=== PATIENT | male | born 1965 | race African-American/Black ===

== ENCOUNTER 2016-09-28 10:51 | Inpatient (IN) | payer OTHER ==
[2016-09-28 11:42] VITALS: BMI 26.4
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
[2016-09-28] MEDS ORDERED: ALBUTEROL SO4 6.7 GM HFA INHALER IH PRN (12:28)
[2016-09-28] MEDS ORDERED: ACETAMINOPHEN 325 MG TABLET (FP) PO PRN (14:00)
[2016-09-28] MEDS ORDERED: MENTHOL/PHENOL 1 EACH UD MM PRN (14:00)
[2016-09-28] MEDS ORDERED: IBUPROFEN 400 MG TABLET (FP) PO PRN (14:00)
[2016-09-28] MEDS ORDERED: diphenhydrAMINE HCL 50 MG CAPSULE PO PRN (14:00)
[2016-09-28] MEDS ORDERED: MAGNESIUM HYDROX 2400MG/30ML ORAL SUSPENSION 30 ML CUP PO PRN (14:00)
[2016-09-28] MEDS ORDERED: LOPERAMIDE HCL 2 MG CAPSULE PO PRN (14:00)
[2016-09-28] MEDS ORDERED: guaiFENesin/D-METHORPHAN HB 10 ML UNIT-DOSE CUPS PO PRN (14:00)
[2016-09-28] MEDS ORDERED: MAG HYDROX/AL HYDROX/SIMETH 30 ML UNIT-DOSE CUP PO PRN (14:00)
[2016-09-28] MEDS ORDERED: MAGNESIUM CITRATE 300 ML BOTTLE PO PRN (14:00)
[2016-09-28] MEDS ORDERED: P-EPHED 60MG/TRIPROLIDI 2.5MG TABLET PO PRN (14:00)
[2016-09-28] MEDS ORDERED: hydrOXYzine PAMOATE 50 MG CAPSULE (FP) PO PRN (14:00)
[2016-09-28] MEDS ORDERED: chlordiazePOXIDE HCL 25 MG CAPSULE PO PRN (14:00)
[2016-09-28] MEDS ORDERED: chlordiazePOXIDE HCL 25 MG CAPSULE PO ONE (14:12)
[2016-09-28] MEDS ORDERED: METHADONE HCL 10 MG TABLET (FOR DETOX USE ONLY) PO ONE ×2 (14:13→23:00)
[2016-09-28 14:24] LABS: HIV 1 & 2 AB NEGATIVE; HIV 1 AGp24 NEGATIVE
[2016-09-28] MEDS: NICOTINE 21 MG/24 HOURS TOPICAL PATCH TD SCH (14:28)
--- NOTE | 2016-09-28 16:05 | CONSULT ---
[facility] Psychiatric Consult - Data Date of interview: 09/28/16 Admission source: [facility] Identifying data: Readmission to [facility] for this 51 y/o Aa male seeking detox treatment on for alcohol,heroin and marijuana dependence.Patient is single,without children,homeless,unemployed and supported on food stamps. Substance Abuse History: Smoking Cessation. Smoking history: Current every day smoker. Have you smoked in the past 12 months: Yes. Aproximately how many cigarettes per day: 8. Cigars Per Day: 0. Hx Chewing Tobacco Use: No. Initiated information on smoking cessation: Yes. 'Breaking Loose' booklet given : 09/28/16. - Substance & Tx. History. Hx Alcohol Use: Yes. Hx Substance Use : Yes. Substance Use Type: Alcohol, Heroin, Marijuana. Hx Substance Use Treatment: [facility] to 06[facility]14/15 not completed). - Substances Abused. Heroin. Route: Inhalation. Frequency: Daily. Amount used: 2 BAGS. Age of first use: 45. Date of Last Use: 09/28/16. Alcohol. Route: Oral. Frequency: Daily. Amount used: FIFTH VODKA OR COGNAC. Age of first use: 28. Date of Last Use: 09/28/16. Cocaine. Route: Inhalation. Frequency: 1-2 times per week. Amount used: $25. Age of first use: 42. Date of Last Use: 07/04. Marijuana/Hashish. Route: Smoking. Frequency: Daily. Amount used: $5. Age of first use: 19. Date of Last Use: 09/27/16. Confirmed by patient. Medical History: Bronchial asthma and a history of past treatment for syphilis. Psychiatric History: No reported history of psychiatric hospitalizations.Mr Chery indicates that he was treated with risperdal during his [facility] in [facility] (released in 2013) .Diagnosed with MDD and Anxiety Disorder (?).Iff psycchotropic medication ( risperdal) for more than a year.No OPD care since his release in 2013.No history of suicide attempts. Physical/Sexual Abuse/Trauma History: Patient denies. Additional Comment: Urine Drug Screen Results: THC-Marijuana, EN-Cocaine, OPI- Opiates.Noted. Mental Status Exam - Mental Status Exam Alert and Oriented to: Time, Place, Person Cognitive Function: Good Patient Appearance: Well Groomed Mood: Hopeful, Euthymic Affect: Appropriate, Normal Range Patient Behavior: Fatigued, Appropriate, Cooperative Speech Pattern: Clear Voice Loudness: Normal Thought Process: Goal Oriented Thought Disorder: Not Present Hallucinations: Denies Suicidal Ideation: Denies Homicidal Ideation: Denies Insight/Judgement: Poor Sleep: Poorly, Difficulty falling asleep (requests zolpidem) Appetite: Good Muscle strength/Tone: Normal Gait/Station: Normal Psychiatric Findings - Problem List ([place] 1, 2,3) (1) Alcohol dependence with uncomplicated withdrawal Current Visit: Yes Status: Acute (2) Cannabis dependence Current Visit: Yes Status: Acute (3) Opioid dependence with withdrawal Current Visit: Yes Status: Acute (4) Nicotine dependence Current Visit: Yes Status: Acute (5) Substance induced mood disorder Current Visit: Yes Status: Acute (6) Asthma Current Visit: Yes Status: Chronic - Initial Treatment Plan Initial Treatment Plan: Psychoeducation.Detoxification.Zolpidem 5 mg po hs prn.Side effects/benefits discussed with patient.Patient agrees with plan.Observation.
[2016-09-28] MEDS ORDERED: ZOLPIDEM TARTRATE 5 MG TABLET PO PRN (17:05)
[2016-09-28] MEDS: chlordiazePOXIDE HCL 25 MG CAPSULE PO SCH ×2 (17:35→22:37)
[2016-09-28] MEDS ORDERED: THIAMINE HCL 100 MG TABLET (FP) PO SCH (22:00)
[2016-09-28] MEDS: BUDESONIDE/FORMETEROL FUMARATE 80/4.5 mcg INHALER IH SCH (22:39)
--- NOTE | 2016-09-28 23:59 | EKG ---
Test Reason : Blood Pressure : / mmHG Vent. Rate : 063 BPM Atrial Rate : 063 BPM P-R Int : 174 ms QRS Dur : 094 ms QT Int : 466 ms P-R-T Axes : 071 068 067 degrees QTc Int : 476 ms NORMAL SINUS RHYTHM NORMAL ECG NO PREVIOUS ECGS AVAILABLE Confirmed by CHELSEA ALMONTE, JOSE LUIS ([id number]) on 09/28/2016 11:59:22 PM Referred By: Theodore Mosquera Confirmed By:JOSE LUIS TRAN MD
[2016-09-29] MEDS: chlordiazePOXIDE HCL 25 MG CAPSULE PO SCH ×2 (06:12→10:23)
[2016-09-29] MEDS ORDERED: COLLOIDAL OATMEAL 1 BAR EACH TP PRN (08:47)
[2016-09-29] MEDS ORDERED: METHADONE HCL 10 MG TABLET (FOR DETOX USE ONLY) PO SCH (10:00)
[2016-09-29] MEDS ORDERED: COLLOIDAL OATMEAL 1 BAR EACH TP SCH (10:00)
[2016-09-29] MEDS ORDERED: PRENATAL VITAMINS W/ FOLIC ACID TABLET (FP) PO SCH (10:00)
[2016-09-29 10:20] LABS: MCH 31.6 pg (25.7-33.7); MCHC 35.1 g/dl (32.0-35.9); MEAN CELL VOLUME 90.1 fl (80-96); MEAN PLT VOLUME 9.1 fl (7.5-11.1); PLATELET COUNT 248 K/MM3 (134-434); RDW 14.5 % (11.9-15.9); WHITE BLOOD COUNT 9.4 K/mm3 (4.0-10.0)
[2016-09-29] MEDS: NICOTINE 21 MG/24 HOURS TOPICAL PATCH TD SCH (10:24)
[2016-09-29] MEDS: BUDESONIDE/FORMETEROL FUMARATE 80/4.5 mcg INHALER IH SCH (10:24)
[2016-09-29 10:31] VITALS: BP 106/50; PULSE 70; TEMP 96.2
--- NOTE | 2016-09-29 10:44 | DS ---
[facility] Detox Discharge Summary Admission Date: 09/28/16 Discharge Date: 09/29/16 - History Present History: Alcohol Dependence, Cannabis Dependence, Cocaine Dependence, Opioid Dependence Additional Comments: PT SUDDENLY EXPRESED DESIRE TO TERMINATE TREATMENT STATING "I HAVE TO GO RIGHT NOW TO GET MY 3 YEAR OLD. I LEFT HER AT A PLACE THAT I REALLY DON'T LIKE'. APPARENTLY, PT GOT OFF THE PHONE TALKING TO SOMEONE AND DECIDED TO SIGN OUT AMA. ALERT O X 3. NAD. Pertinent Past History: ASTHMA - Physical Exam Results Vital Signs: Vital Signs Temperature 96.2 F L 09/29/16 10:30 Pulse Rate 70 09/29/16 10:30 Respiratory Rate 18 09/29/16 10:30 Blood Pressure 106/50 09/29/16 10:30 O2 Sat by Pulse Oximetry (%) Pertinent Admission Physical Exam Findings: WITHDRAWAL SX - Treatment Hospital Course: Discharged Condition Good - Medication Discharge Medications: Ambulatory Orders Albuterol Sulfate Inhaler - [Ventolin HFA Inhaler -] 2 inh PO Q4H PRN 08/22/14 Salmeterol/Fluticasone [Advair 250Mcg/50Mcg] 1 inh PO BID 08/22/14 - Diagnosis (1) Alcohol dependence with uncomplicated withdrawal Current Visit: Yes Status: Acute (2) Cannabis dependence Current Visit: Yes Status: Acute (3) Nicotine dependence Current Visit: Yes Status: Chronic Qualifiers: Nicotine product type: cigarettes Substance use status: uncomplicated Qualified Code(s): F17.210 - Nicotine dependence, cigarettes, uncomplicated (4) Opioid dependence with withdrawal Current Visit: Yes Status: Acute (5) Asthma Current Visit: Yes Status: Chronic Qualifiers: Asthma severity: mild intermittent Asthma complication type: uncomplicated Qualified Code(s): J45.20 - Mild intermittent asthma, uncomplicated (6) Cocaine dependence Current Visit: Yes Status: Acute Qualifiers: Substance use status: uncomplicated Qualified Code(s): F14.20 - Cocaine dependence, uncomplicated - AMA Did Patient Leave Against Medical Advice: Yes (AMA)
[2016-09-29 10:49] LABS: ALBUMIN 4.4 g/dl (3.4-5.0); BILIRUBIN,TOTAL 2.4 mg/dL (0.2-1.0); CALCIUM 9.4 mg/dL (8.5-10.1); CREATININE 1.3 mg/dL (0.7-1.3); TOT PROT 7.6 g/dl (6.4-8.2)
[2016-09-29] MEDS ORDERED: chlordiazePOXIDE HCL 25 MG CAPSULE PO SCH (17:00)
[2016-09-30] MEDS ORDERED: METHADONE HCL 5 MG TABLET (FOR DETOX USE ONLY) PO SCH (10:00)
[2016-09-30] MEDS ORDERED: chlordiazePOXIDE 5 MG CAPSULE PO SCH (17:00)
[2016-10-01] MEDS ORDERED: chlordiazePOXIDE HCL 10 MG CAPSULE PO SCH (17:00)
[2016-10-02] MEDS ORDERED: METHADONE HCL 10 MG TABLET (FOR DETOX USE ONLY) PO SCH (10:00)
[2016-10-03] MEDS ORDERED: METHADONE HCL 5 MG TABLET (FOR DETOX USE ONLY) PO SCH (06:00)
== END 2016-09-29 10:10 | disposition left against medical advice (07) | DRG 770 ==
LOC: YASAS 10:51 → Y3N 13:16
PROVIDERS: ADMIT Internal Medicine; ATTEND Internal Medicine
PROC: HZ2ZZZZ Detoxification Services for Substance Abuse Treatment (ICD-10-PCS; principal; 2016-09-28)
DX: F11.23 Opioid dependence with withdrawal (principal); F10.230 Alcohol dependence with withdrawal, uncomplicated; F14.20 Cocaine dependence, uncomplicated; F12.20 Cannabis dependence, uncomplicated; F17.210 Nicotine dependence, cigarettes, uncomplicated; F19.24 Other psychoactive substance dependence with psychoactive substance-induced mood disorder; F41.8 Other specified anxiety disorders; J45.20 Mild intermittent asthma, uncomplicated; Z87.438 Personal history of other diseases of male genital organs; Z87.898 Personal history of other specified conditions
CPT/HCPCS: 36415; 80053; 85027; 86593; 87389; 93005; 93010